=== PATIENT | female | born 2005 | race Two or more races ===

== ENCOUNTER 2025-06-10 18:04 | Emergency (ER) | payer MEDICAID, OTHER ==
[~2025-06-10] VITALS: Ht 172.7 cm; Wt 60.0 kg
[2025-06-10 19:45] VITALS: BP 127/89; PULSE 103; RESP 18; TEMP 98; O2SAT 99
== END 2025-06-10 20:00 | disposition left against medical advice (07) ==
LOC: EMS 18:04
DX: M54.2 Cervicalgia (principal); Z53.21 Procedure and treatment not carried out due to patient leaving prior to being seen by health care provider